=== PATIENT | female | born 1955 | race Two or more races ===

== ENCOUNTER 2020-03-23 14:41 | Outpatient (REF) | payer MEDICARE, MEDICAID, SELFPAY ==
--- NOTE | 2020-03-23 | US_ITS ---
EXAMINATION: US THYROID CLINICAL INFORMATION: Nontoxic single thyroid nodule. COMPARISON: CT neck 05/15/2011 TECHNIQUE: Linear transducer marie-scale and color Doppler examination with attention to the region of the thyroid. FINDINGS: SIZE: Measurements of the thyroid lobes and nodules are given in sagittal, anteroposterior and transverse dimensions respectively. Right Thyroid Lobe: 4.2 x 2.2 x 1.7 cm, volume 8.2 mL. Parenchyma: The gland echotexture is heterogeneous. Thyroid vascularity is normal. Left Thyroid Lobe: 4.0 x 1.4 x 1.3 cm, volume 3.6 mL. Parenchyma: The gland echotexture is heterogeneous. Thyroid vascularity is normal. Isthmus: 0.6 cm in maximum AP dimension. RIGHT THYROID LOBE: There are 3 nodules seen. 1. Location: Middle. Size: 0.3 x 0.2 x 0.4 cm. Nodule characteristics: Hypoechoic with smooth margins, no calcifications and no internal flow. 2. Location: Middle. Size: 0.7 x 0.5 x 0.7 cm. Nodule characteristics: Hypoechoic with smooth margins, no calcifications and no internal flow. 3. Location: Inferior. Size: 0.5 x 0.4 x 0.4 cm. Nodule characteristics: Hypoechoic with smooth margins, no calcifications and positive internal flow. ISTHMUS: There is 1 nodule seen. 1. Location: Right isthmus. Size: 0.4 x 0.3 x 0.6 cm. Nodule characteristics: Heterogeneously hypoechoic, smooth margins, no calcifications and no internal flow. LEFT THYROID LOBE: No nodules. NODES: No lymphadenopathy is seen in the tissue surrounding the thyroid gland. US/US thyroid IMPRESSION: 1. Normal-sized, minimally heterogeneous thyroid. Thyroid vascularity is normal. 2. Multiple small thyroid nodules as described. The largest nodule is within the mid right lobe measuring up to 7 mm. Various management parameters for solitary thyroid nodules are in the literature. According to the [place] [employer], recommendations for thyroid nodules are as follows: Benign: Purely solid nodules (no cystic component). Estimated risk of malignancy < 1%. Recommendation: No biopsy or ultrasound follow up required. Very low suspicion: Spongiform or partially cystic nodules without any of the sonographic features described in low, intermediate or high suspicions patterns. Estimated risk of malignancy < 3%. Recommendation: Consider FNA at > 2 cm. Observation without FNA is also a reasonable option. Recommend repeat ultrasound in 24 months for nodules measuring greater than 1 cm. Nodule measuring less than 1 cm do not require ultrasound follow up. Low suspicion: Isoechoic or hyperechoic solid nodule, or partially cystic nodule with eccentric solid areas, without microcalcification, irregular margin or extrathyroidal extension, or taller than wide shape. Estimated risk of malignancy 5-10%. Recommendation: FNA at > 1.5 cm. Recommend repeat ultrasound in 12-24 months for nodules measuring less than 1.5 cm. Intermediate suspicion: Hypoechoic solid nodule with smooth margins without microcalcification, extrathyroidal extension, or taller than wide shape. Estimated risk of malignancy 10-20%. Recommendation: FNA at > 1 cm. Recommend repeat ultrasound in 12-24 months for nodules measuring less than 1 cm. High suspicion: Solid hypoechoic nodule or solid hypoechoic component of a partially cystic nodule with one or more of the following features: irregular margins (infiltrative, microlobulated), microcalcifications, taller than wide shape, rim calcifications with small extrusive soft tissue component, evidence of extrathyroidal extension. Estimated risk of malignancy > 70-90%. Recommendation: FNA at > 1 cm. Recommend repeat ultrasound in 6-12 months for nodules measuring less than 1 cm.
== END 2020-03-23 14:42 | disposition home or self-care (01) ==
LOC: HO.US 14:41
PROVIDERS: PCP Internal Medicine; Visit Provider Internal Medicine
DX: E04.1 Nontoxic single thyroid nodule (principal)
CPT/HCPCS: 76536

== ENCOUNTER 2020-04-27 13:48 | Outpatient (REF) | payer MEDICARE, MEDICAID, SELFPAY ==
--- NOTE | 2020-04-27 | US_ITS ---
EXAMINATION: US VENOUS ULTRASOUND WITH DOPPLER LOWER EXTREMITY, LEFT CLINICAL INFORMATION: Left lower extremity pain. Assess for DVT. COMPARISON: None TECHNIQUE: Ultrasound of the deep veins is performed from the hip to the calf with compression sonography and color and pulse Doppler assessment. Spectral analysis with color-flow imaging is performed. FINDINGS: There is normal venous compression and respiratory variation and augmented flow. The visualized common femoral vein, superficial femoral vein, profunda femoral vein, popliteal vein, and the trifurcation region shows no evidence of deep venous thrombosis. The peroneal veins are not visualized with certainty. There is no significant popliteal fossa cyst. US/US venous duplex LE LT IMPRESSION: 1. No DVT demonstrated in the left lower extremity. 2. If the patient's symptoms persist, followup ultrasound in 5-7days might be of value to exclude proximal propagation from a non-visualized calf vein.
== END 2020-04-27 13:49 | disposition home or self-care (01) ==
LOC: HO.US 13:48
PROVIDERS: PCP Internal Medicine; Visit Provider Internal Medicine
DX: M79.605 Pain in left leg (principal)
CPT/HCPCS: 93971